=== PATIENT | female | born 1975 | race Caucasian/White ===

== ENCOUNTER 2017-11-03 12:43 | Emergency (ER) | payer MEDICAID ==
[~2017-11-03] VITALS: Ht 152.4 cm; Wt 51.0 kg
[~2017-11-03 12:43] MED LIST: CHLO25CA10 PO; HYDR-569 PO; ONDA4TAB6 PO
[2017-11-03] MEDS ORDERED: NO HOME MEDS (12:59)
[2017-11-03 13:00] VITALS: BP 147/99
[2017-11-03] MEDS ORDERED: HYDR-3965 PO (13:02)
[2017-11-03] MEDS ORDERED: DOXY100C43 PO (13:02)
== END 2017-11-03 13:38 | disposition home or self-care (01) ==
LOC: ER 12:43
DX: M79.604 Pain in right leg (principal); F17.200 Nicotine dependence, unspecified, uncomplicated; Z88.6 Allergy status to analgesic agent
CPT/HCPCS: 99284

== ENCOUNTER 2017-12-19 03:49 | Emergency (ER) | payer MEDICAID ==
[~2017-12-19] VITALS: Ht 152.4 cm; Wt 46.2 kg
[~2017-12-19 03:49] MED LIST changes: -CHLO25CA10 PO; -HYDR-569 PO; +NO HOME MEDS; -ONDA4TAB6 PO
[2017-12-19 03:55] VITALS: BP 131/90
[2017-12-19] MEDS ORDERED: LIDOcaine 1% 30ml preserv. free vial SQ STA (04:28)
[2017-12-19] MEDS ORDERED: cephalexin 250mg capsule PO ONE (05:05)
[2017-12-19] MEDS ORDERED: CEPH500C5 PO (05:05)
[2017-12-19] MEDS ORDERED: HYDROcodone/acetaminophen 5mg/325mg tablet PO ONE (05:05)
[2017-12-19] MEDS ORDERED: HYDR-3965 PO ×2 (05:05→14:58)
[2017-12-19] MEDS ORDERED: CEPH-572 PO (14:58)
== END 2017-12-19 05:38 | disposition home or self-care (01) ==
LOC: ER 03:49
DX: L03.011 Cellulitis of right finger (principal); Z88.6 Allergy status to analgesic agent; Z88.5 Allergy status to narcotic agent
CPT/HCPCS: 26010; 99283; A6449; J3490

== ENCOUNTER 2021-01-05 16:03 | Emergency (ER) | payer MEDICAID | END 2021-01-05 17:51 | disposition left against medical advice (07) | LOC: ER 16:04 | DX: Z53.21 Procedure and treatment not carried out due to patient leaving prior to being seen by health care provider (principal) ==

== ENCOUNTER 2022-03-07 09:21 | Emergency (ER) | payer MEDICAID ==
[~2022-03-07] VITALS: Ht 152.4 cm; Wt 54.5 kg
[2022-03-07 09:39] VITALS: BP 142/95
[2022-03-07] MEDS ORDERED: LIDOcaine 1% 30ml preserv. free vial IJ ONE (10:25)
== END 2022-03-07 12:17 | disposition home or self-care (01) ==
LOC: ER 09:21
DX: S61.210A Laceration without foreign body of right index finger without damage to nail, initial encounter (principal); F17.200 Nicotine dependence, unspecified, uncomplicated; Z98.891 History of uterine scar from previous surgery; Z88.8 Allergy status to other drugs, medicaments and biological substances; W23.1XXA Caught, crushed, jammed, or pinched between stationary objects, initial encounter; Y93.89 Activity, other specified; Y92.89 Other specified places as the place of occurrence of the external cause; Y99.8 Other external cause status
CPT/HCPCS: 12001; 99282; A6222; J7030; A6258; A6449

== ENCOUNTER 2022-07-22 04:21 | Emergency (ER) | payer MEDICAID ==
[~2022-07-22] VITALS: Ht 157.5 cm; Wt 59.1 kg
[2022-07-22] MEDS ORDERED: CefTRIAXone/D5W-Rocephin 1gm 50 ML IV ONE (04:35)
[2022-07-22] MEDS ORDERED: acetaminophen 325mg tablet PO STA (04:35)
[2022-07-22] MEDS ORDERED: ketorolac trometh. 30mg/ml inj. IV ONE (04:35)
[2022-07-22] MEDS ORDERED: haloperidol lactate 5mg/ml inj IM ONE (05:10)
[2022-07-22 05:15] LABS: BASOPHILS % (AUTO) 0.3 % (0-1); EOSINOPHILS # (AUTO) 0.1 X10'3 (0-0.9); EOSINOPHILS % (AUTO) 0.9 % (0-6); HEMATOCRIT 40.6 % (35.0-45.0); HEMOGLOBIN 13.6 g/dl (12.0-16.0); LYMPHOCYTES # (AUTO) 0.6 X10'3 (1.1-4.8); LYMPHOCYTES % (AUTO) 5.8 % (21-51); MEAN CORPUSCULAR HEMOGLOBIN 28.8 PG (27.0-31.0); MEAN CORPUSCULAR HGB CONC 33.6 g/dL (33.0-36.5); MEAN CORPUSCULAR VOLUME 85.8 FL (78-98); MEAN PLATELET VOLUME 7.7 FL (7.4-10.4); MONOCYTES # (AUTO) 1.5 X10'3 (0-0.9); MONOCYTES % (AUTO) 13.2 % (2-12); NEUTROPHILS # (AUTO) 8.8 X10'3 (1.8-7.7); NEUTROPHILS % (AUTO) 79.8 % (42-75); PLATELET COUNT 260 X10'3 (140-440); RED BLOOD COUNT 4.73 X10'6 (4.20-5.60); RED CELL DISTRIBUTION WIDTH 12.7 % (11.5-14.5)
[2022-07-22 05:23] LABS: ALANINE AMINOTRANSFERASE 31 U/L (12-78); ALBUMIN 4.1 G/DL (3.4-5.0); ALBUMIN/GLOBULIN RATIO 1.1 (1.1-1.5); ALKALINE PHOSPHATASE 100 IU/L (46-116); ANION GAP 11 (8-16); ASPARTATE AMINO TRANSFERASE 21 U/L (10-37); BILIRUBIN,TOTAL 0.2 MG/DL (0.1-1.0); BLOOD UREA NITROGEN 10 MG/DL (7-18); BUN/CREATININE RATIO 14.3 (6.6-38.0); CALCIUM 9.3 MG/DL (8.5-10.1); CHLORIDE 101 MMOL/L (99-107); GLUCOSE 109 MG/DL (70-104); POTASSIUM 3.5 MMOL/L (3.5-5.1); SODIUM 136 MMOL/L (135-145); TOTAL CARBON DIOXIDE 23.8 MMOL/L (24-32); eGFR 90 ML/MIN
[2022-07-22 05:27] VITALS: BP 131/85
[2022-07-22 07:26] LABS: URINE HCG NEGATIVE (NEG)
[2022-07-22 07:27] LABS: CLARITY,URINE CLEAR (Clear); COLOR,URINE YELLOW (Yellow); GLUCOSE, URINE NEGATIVE (Neg); KETONES,URINE NEGATIVE (Neg); LEUKOCYTE ESTERASE ,URINE NEGATIVE (Neg); NITRITES, URINE NEGATIVE (Neg); OCCULT BLOOD,URINE TRACE-INTACT (Neg); PROTEIN,URINE NEGATIVE (Neg); UROBILINOGEN,URINE 0.2 E.U/dL (0.2-1.0)
[2022-07-22 07:31] LABS: UA COLLECTION TYPE CLN CATCH MIDSTREAM
[2022-07-22 07:32] LABS: BACTERIA,URINE NONE SEEN /HPF (Neg); MUCUS STRANDS FEW /LPF (Neg); RBC,URINE 0-2 /HPF (0-2); SQUAMOUS EPITHELIAL CELL,UR FEW /LPF (FEW); WBC,URINE NONE SEEN /HPF (0-4)
== END 2022-07-22 07:56 | disposition home or self-care (01) ==
LOC: ER 04:21
DX: R10.84 Generalized abdominal pain (principal); R51.9 Headache, unspecified; M54.2 Cervicalgia; F12.90 Cannabis use, unspecified, uncomplicated; Z98.890 Other specified postprocedural states; Z72.89 Other problems related to lifestyle; Z88.6 Allergy status to analgesic agent; Z88.5 Allergy status to narcotic agent
CPT/HCPCS: 80053; 81001; 81025; 85025; 87040; 96365; 96375; 99284; J0696; J1885

== ENCOUNTER 2022-09-09 15:38 | Emergency (ER) | payer MEDICAID ==
[~2022-09-09] VITALS: Ht 152.4 cm; Wt 54.0 kg
[2022-09-09 15:55] VITALS: BP 152/101
== END 2022-09-09 18:59 | disposition left against medical advice (07) ==
LOC: ER 15:39
DX: K08.89 Other specified disorders of teeth and supporting structures (principal); Z53.21 Procedure and treatment not carried out due to patient leaving prior to being seen by health care provider